=== PATIENT | female | born 1970 | race Caucasian/White ===

== ENCOUNTER 2020-06-23 06:26 | Emergency (ER) | payer MEDICAID ==
[~2020-06-23] VITALS: Ht 157.5 cm; Wt 92.6 kg
[2020-06-23] MEDS ORDERED: SUMA25TA9 PO (06:40)
[2020-06-23] MEDS ORDERED: FLUTICASONE PROPIONATE 50 MCG/SPRAY 16 GM NASAL SPRAY NASAL ONE (06:45)
[2020-06-23] MEDS ORDERED: SODIUM CHLORIDE 0.9% 1,000 ML IV ONE (06:45)
[2020-06-23] MEDS ORDERED: KETOROLAC TROMETHAMINE 30 MG/ML VIAL IVP ONE (06:45)
[2020-06-23] MEDS ORDERED: METOCLOPRAMIDE HCL 5 MG/ML 2 ML VIAL IVP ONE (06:45)
[2020-06-23 07:59] VITALS: BP 121/76
== END 2020-06-23 08:58 | disposition home or self-care (01) ==
LOC: EMS 06:28
DX: G43.909 Migraine, unspecified, not intractable, without status migrainosus (principal); J32.9 Chronic sinusitis, unspecified; Z59.0 Homelessness; Z88.0 Allergy status to penicillin
CPT/HCPCS: 96361; 96374; 96375; 99284; J1885; J2765; J7030